=== PATIENT | female | born 1990 | race American Indian/Alaskan Native ===

== ENCOUNTER 2019-12-28 20:18 | Inpatient (IN) | payer OTHER, SELFPAY ==
[2019-12-28] MEDS ORDERED: DINOPROSTONE 10 MG VAG SUPP VG ONE (21:59)
[2019-12-28] MEDS ORDERED: BUTORPHANOL 2 MG/1 ML INJ IV PRN (21:59)
[2019-12-28] MEDS ORDERED: LIDOCAINE (2%) 20 MG/1 ML VIAL 20 ML MDV INFILTRATI ONE (21:59)
[2019-12-28] MEDS ORDERED: ePHEDrine SULFATE 50 MG/1 ML INJ IV PRN (21:59)
[2019-12-28] MEDS ORDERED: TERBUTALINE 1 MG/1 ML INJ SUB-Q PRN (21:59)
[2019-12-28] MEDS ORDERED: TERBUTALINE 1 MG/1 ML INJ IVP PRN (21:59)
[2019-12-28] MEDS ORDERED: MINERAL OIL 30 ML ORAL LIQD PO PRN (21:59)
[2019-12-28] MEDS ORDERED: OXYTOCIN 20 UNIT/1000ML DRIP 20 UNITS/1,000 ML BAG IV SCH (22:00)
[2019-12-28 22:46] LABS: Hematocrit 36.3 % (30.3-42.9); Hemoglobin 12.9 gm/dl (10.1-14.3); Mean Corpuscular HGB Conc 36 % (30-34); Mean Corpuscular Volume 92 fl (79-97); Platelet Count 169 K/mm3 (140-440); Red Blood Count 3.93 M/mm3 (3.65-5.03); Red Cell Distribution Width 13.4 % (13.2-15.2)
[2019-12-28] MEDS: LACTATED RINGERS 1,000 ML IV SCH (23:15)
--- NOTE | 2019-12-29 04:15 | History and Physical Report ---
History of Present Illness Date of examination: 12/29/19 Date of admission: 12/28/19 20:18 Chief complaint: IOL History of present illness: 29-year-old -0-0-1 at 41+4 weeks who presents for induction of labor secondary to postterm . The patient is a transfer OB at 28 weeks estimated gestational age. Her course has been uncomplicated. She is negative for GBS. Past History Past Medical History: no pertinent history Past Surgical History: no surgical history Social history: single - Obstetrical History Expected Date of Delivery: 12/18/19 Actual Gestation: 41 Week(s) 4 Day(s) : 2 Para: 1 Hx # Term Pregnancies: 1 Number of Pregnancies: 0 Spontaneous Abortions: 0 Induced : 0 Number of Living Children: 1 Medications and Allergies Allergies Allergy/AdvReac Type Severity Reaction Status Date / Time No Known Allergies Allergy Verified 12/28/19 20:42 Home Medications Medication Instructions Recorded Confirmed Last Taken Type Daily Combo Pack 147 mg PO DAILY 12/28/19 12/28/19 12/16/19 History Active Meds: Active Medications Butorphanol Tartrate (Stadol) 2 mg IV Q2H PRN PRN Reason: Pain , Severe (7-10) Ephedrine Sulfate (Ephedrine Sulfate) 10 mg IV Q2M PRN PRN Reason: Hypotension Fentanyl (Sublimaze) 100 mcg IV Q2H PRN PRN Reason: Pain,Severe (7-10) LABOR PAIN Oxytocin/Sodium Chloride (Pitocin/Ns 20 Unit/1000ml Drip) 20 units in 1,000 mls @ 125 mls/hr IV DIRECT LENORE Lactated Ringer's (Lactated Ringers) 1,000 mls @ 125 mls/hr IV DIRECT LENORE Last Admin: 12/28/19 23:15 Dose: 125 mls/hr Documented by: Mineral Oil (Mineral Oil) 30 ml PO QHS PRN PRN Reason: Constipation Terbutaline Sulfate (Brethine) 0.25 mg SUB-Q ONCE PRN PRN Reason: Hyperstimulation/Hypertonicity Terbutaline Sulfate (Brethine) 0.25 mg IVP ONCE PRN PRN Reason: Hyperstimulation/Hypertonicity Review of Systems All systems: negative Genitourinary: no vaginal bleeding, no leakage of fluid, no pelvic pain, no contractions - Vital Signs Vital signs: Vital Signs Pulse Pulse Ox 71 99 12/28/19 20:56 12/28/19 20:56 Temp Pulse Resp BP Pulse Ox 98.9 F 106 H 16 135/85 86 12/29/19 04:00 12/29/19 04:10 12/29/19 04:00 12/29/19 04:00 12/29/19 04:10 - Physical Exam Breasts: Positive: deferred Cardiovascular: Regular rate Lungs: Positive: Clear to auscultation Abdomen: Positive: normal appearance Results Result Diagrams: 12/28/19 22:00 Abnormal lab results 12/28/19 Range/Units 22:00 MCH 33 H (28-32) pg MCHC 36 H (30-34) % All other labs normal. Assessment and Plan - Patient Problems (1) Post-term , 40-42 weeks of gestation Current Visit: Yes Status: Acute Plan to address problem: Admit for induction of labor
[2019-12-29] MEDS: LACTATED RINGERS 1,000 ML IV SCH (05:46)
[2019-12-29] MEDS: fentaNYL 100 MCG/2 ML INJ IV PRN ×2 (07:45→10:57)
[2019-12-29] MEDS ORDERED: DEXMEDETOMIDINE 200 MCG/2 ML VIAL IV ONE (12:57)
[2019-12-29] MEDS ORDERED: NalbUPHINE 10 MG/1 ML INJ IV PRN (13:00)
[2019-12-29] MEDS ORDERED: NALOXONE 2 MG/2 ML INJ IV PRN (13:00)
[2019-12-29] MEDS ORDERED: ONDANSETRON 4 MG/2 ML INJ IV PRN ×2 (13:00→14:30)
[2019-12-29] MEDS ORDERED: diphenhydrAMINE 50 MG/ML VIAL IV PRN (13:00)
[2019-12-29] MEDS ORDERED: fentaNYL-BUPIV 2 MCG/ML-0.125% 200 MCG/100 ML BAG EPIDURAL SCH (13:00)
--- NOTE | 2019-12-29 13:50 | Procedure Note ---
OB Delivery Note - Delivery Date of Delivery: 12/29/19 Surgeon: NINA BETHEA ([facility]) Estimated blood loss: 500cc - Vaginal Delivery presentation: vertex Delivery position: OA Intrapartum events: mult.variable deceleratio Delivery induction: cervidil Delivery augmentation: rupture of membranes Delivery monitor: external FHT, external uterine Route of delivery: Delivery placenta: spontaneous Delivery cord: nuchal cord (x2), 3 umbilical vessels Episiotomy: none Delivery laceration: none Anesthesia: none Delivery comments: FHT category 1 throughout second stage. Excellent maternal effort progressed to of male infant at 1329. Head delivered OA, restituted LOT, shoulders followed easily, somersaulted through nuchal cord x2. to maternal abdomen, no respiratory effort, no tone. Bulb suction and stimulation. Cord clamped and cut, to warmer, peds team to bedside. Apgars 2/8. Placenta delivered spontaneously and intact, 3VC, calcifications noted. Pitocin infusing. Clots expressed from lower uterine segment, fundus firm. EBL 500cc. - Infant A at 1 minute: 2 at 5 minutes: 8 Infant Gender: Male
[2019-12-29] MEDS ORDERED: WITCH HAZEL/ GLYCERIN PAD TP PRN (13:51)
[2019-12-29] MEDS ORDERED: PROMETHAZINE 25 MG RECT SUPP PR PRN (13:51)
[2019-12-29] MEDS ORDERED: ACETAMINOPHEN 325 MG TAB PO PRN (13:51)
[2019-12-29] MEDS ORDERED: PROMETHAZINE 25 MG TAB PO PRN (13:51)
[2019-12-29] MEDS ORDERED: diphenhydrAMINE 25 MG CAP PO PRN (13:51)
[2019-12-29] MEDS ORDERED: miSOPROStol 200 MCG TAB ONE (14:03)
[2019-12-29] MEDS ORDERED: METHYLERGONOVINE MALEATE 0.2 MG/ML VIAL IM ONE ×2 (14:04→15:00)
[2019-12-29] MEDS ORDERED: miSOPROStol 200 MCG TAB PO ONE (14:07)
[2019-12-29] MEDS ORDERED: MAGNESIUM HYDROXIDE (MOM) ORAL LIQD UDC PO PRN (14:30)
[2019-12-29] MEDS ORDERED: LANOLIN/ZINC/DIMETHICONE (LANSINOH) 7 GM TP PRN (14:30)
[2019-12-29] MEDS ORDERED: hydrALAZINE 20 MG/1 ML INJ ONE (15:41)
[2019-12-29] MEDS ORDERED: MAGNESIUM SULFATE 4 GM/100 ML BAG IV ONE ×2 (15:42→16:00)
[2019-12-29] MEDS ORDERED: hydrALAZINE 20 MG/1 ML INJ IV ONE (16:00)
[2019-12-29] MEDS ORDERED: MAGNESIUM SULFATE 40GM/1000ML 40 GM/1,000 ML BAG IV SCH (17:00)
[2019-12-29] MEDS: IBUPROFEN 600 MG TAB PO SCH (18:25)
[2019-12-29 20:17] LABS: Hematocrit 39.5 % (30.3-42.9); Hemoglobin 13.8 gm/dl (10.1-14.3); Mean Corpuscular HGB Conc 35 % (30-34); Mean Corpuscular Volume 92 fl (79-97); Platelet Count 160 K/mm3 (140-440); Red Blood Count 4.32 M/mm3 (3.65-5.03); Red Cell Distribution Width 13.2 % (13.2-15.2)
[2019-12-29] MEDS ORDERED: ACETAMINOPHEN 500 MG TAB PO ONE (20:17)
[2019-12-29] MEDS ORDERED: HYDROcodone/ACETAMINOPHEN 5-325 MG TAB PO PRN (20:18)
[2019-12-29 20:32] LABS: Uric Acid 5.3 mg/dL (3.5-7.6)
[2019-12-30 02:37] LABS: Hematocrit 36.8 % (30.3-42.9); Hemoglobin 12.7 gm/dl (10.1-14.3)
--- NOTE | 2019-12-30 08:55 | Progress Note ---
Assessment and Plan A: PPD1 s/p Preeclampsia with severe features Fever now resolved- PUI PP H&H pending Mild to severe range BP P: Continue magnesium sulfate infusion Rescue Hydralazine PRN PO Labetalol BID COVID test Subjective - Subjective Date of service: 12/30/19 Principal diagnosis: s/p , preeclampsia with severe features, fever Interval history: PPD1 s/p , preeclampsia with severe features receiving magnesium sulfate inf usion. Fever overnight now resolved, COVID test to be collected today. Patient reports: appetite normal, pain well controlled : doing well, bottle feeding Objective - Vital Signs Latest vital signs: Vital Signs Temp Pulse Resp BP Pulse Ox 12/30/19 08:49 118 H 100 12/30/19 08:47 98.6 F 12/30/19 08:44 132 H 100 12/30/19 08:39 119 H 100 12/30/19 08:35 101 H 136/86 12/30/19 08:34 96 H 100 12/30/19 08:29 100 H 100 12/30/19 08:24 88 100 12/30/19 08:19 95 H 100 12/30/19 08:14 93 H 100 12/30/19 08:09 87 100 12/30/19 08:04 90 144/96 100 12/30/19 07:59 94 H 100 12/30/19 07:54 97 H 100 12/30/19 07:51 98 H 150/100 12/30/19 07:49 94 H 100 12/30/19 07:44 86 100 12/30/19 07:39 61 97 12/30/19 07:34 84 99 12/30/19 07:29 77 100 12/30/19 07:24 80 100 12/30/19 07:19 82 100 12/30/19 07:14 88 100 12/30/19 07:09 85 100 12/30/19 07:05 109 H 164/93 12/30/19 07:04 117 H 99 12/30/19 06:59 80 100 12/30/19 06:54 76 99 12/30/19 06:49 80 100 12/30/19 06:44 87 100 12/30/19 06:39 85 100 12/30/19 06:35 89 157/79 08/05/20 06:34 89 100 08/05/20 06:29 93 H 100 08/05/20 06:20 81 98 08/05/20 06:15 80 98 08/05/20 06:10 84 99 08/05/20 06:05 88 98 08/05/20 06:04 96 H 130/86 08/05/20 06:00 79 98 08/05/20 05:55 82 97 08/05/20 05:50 81 97 08/05/20 05:45 79 97 08/05/20 05:40 81 98 08/05/20 05:35 81 14 98 08/05/20 05:34 79 126/87 08/05/20 05:30 82 98 08/05/20 05:25 81 100 08/05/20 05:20 82 100 08/05/20 05:15 82 99 08/05/20 05:10 86 100 08/05/20 05:05 89 100 08/05/20 05:04 95 H 133/96 08/05/20 05:00 88 100 08/05/20 04:55 84 100 08/05/20 04:50 84 100 08/05/20 04:45 78 100 08/05/20 04:40 79 100 08/05/20 04:35 81 132/90 100 08/05/20 04:30 76 100 08/05/20 04:25 83 100 08/05/20 04:20 79 98 08/05/20 04:15 78 99 08/05/20 04:10 78 98 08/05/20 04:05 92 H 135/84 100 08/05/20 04:00 80 99 08/05/20 03:55 81 98 08/05/20 03:50 78 99 08/05/20 03:45 77 99 08/05/20 03:40 78 100 08/05/20 03:35 84 124/92 100 08/05/20 03:30 82 100 08/05/20 03:25 80 100 08/05/20 03:20 84 100 08/05/20 03:15 97 H 99 08/05/20 03:10 79 99 08/05/20 03:05 82 98 08/05/20 03:04 87 128/84 08/05/20 03:00 80 99 08/05/20 02:55 87 99 08/05/20 02:50 82 97 08/05/20 02:45 86 98 12/30/19 02:40 83 98 12/30/19 02:35 98.9 F 86 98 12/30/19 02:34 85 130/84 12/30/19 02:30 87 99 12/30/19 02:25 87 99 12/30/19 02:20 90 100 12/30/19 02:15 92 H 100 12/30/19 02:10 95 H 100 12/30/19 01:55 109 H 97 12/30/19 01:50 88 98 12/30/19 01:45 91 H 98 12/30/19 01:40 89 99 12/30/19 01:35 94 H 14 99 12/30/19 01:34 100 H 130/77 12/30/19 01:30 99 H 99 12/30/19 01:25 93 H 100 12/30/19 01:20 94 H 99 12/30/19 01:15 116 H 98 12/30/19 01:10 90 98 12/30/19 01:05 93 H 116/64 99 12/30/19 01:00 95 H 98 12/30/19 00:55 90 98 12/30/19 00:50 94 H 98 12/30/19 00:45 94 H 98 12/30/19 00:40 93 H 98 12/30/19 00:35 94 H 14 118/58 99 12/30/19 00:30 92 H 98 12/30/19 00:25 93 H 98 12/30/19 00:20 97 H 98 12/30/19 00:15 99 H 99 12/30/19 00:10 106 H 100 12/30/19 00:05 100 H 134/69 99 05 00:00 102 H 98 12/29/19 23:55 97 H 98 12/29/19 23:50 102 H 99 12/29/19 23:45 100 H 98 12/29/19 23:40 106 H 99 12/29/19 23:35 101 H 14 98 12/29/19 23:34 101 H 124/71 12/29/19 23:30 116 H 98 12/29/19 23:25 99 H 98 12/29/19 23:20 104 H 98 12/29/19 23:15 103 H 98 12/29/19 23:10 111 H 99 12/29/19 23:05 102 H 98 12/29/19 23:04 101 H 132/72 12/29/19 23:00 113 H 98 12/29/19 22:55 102 H 98 12/29/19 22:50 106 H 98 12/29/19 22:45 108 H 98 12/29/19 22:40 116 H 98 12/29/19 22:35 109 H 99 12/29/19 22:34 107 H 124/74 12/29/19 22:30 105 H 99 12/29/19 22:25 109 H 99 12/29/19 22:20 112 H 98 12/29/19 22:15 106 H 99 12/29/19 22:10 101.3 F H 110 H 98 12/29/19 22:05 112 H 98 12/29/19 22:04 107 H 127/72 12/29/19 22:00 108 H 98 12/29/19 21:55 110 H 99 12/29/19 21:50 109 H 99 12/29/19 21:45 118 H 99 12/29/19 21:40 125 H 99 12/29/19 21:35 115 H 16 99 12/29/19 21:34 110 H 121/73 12/29/19 21:30 120 H 99 12/29/19 21:25 113 H 100 12/29/19 21:20 111 H 100 12/29/19 21:15 115 H 100 12/29/19 21:10 118 H 100 12/29/19 21:05 115 H 100 12/29/19 21:04 112 H 135/82 12/29/19 21:00 114 H 100 12/29/19 20:55 122 H 99 12/29/19 20:50 126 H 100 12/29/19 20:45 120 H 100 12/29/19 20:40 118 H 100 12/29/19 20:35 116 H 99 12/29/19 20:34 114 H 137/81 12/29/19 20:30 114 H 99 12/29/19 20:25 116 H 98 12/29/19 20:20 113 H 99 12/29/19 20:15 110 H 100 12/29/19 20:10 116 H 100 12/29/19 20:05 115 H 100 12/29/19 20:04 122 H 135/80 12/29/19 20:00 119 H 100 12/29/19 19:55 125 H 100 12/29/19 19:50 125 H 100 12/29/19 19:45 121 H 100 12/29/19 19:40 115 H 100 12/29/19 19:35 116 H 18 99 12/29/19 19:34 113 H 131/82 12/29/19 19:30 113 H 100 12/29/19 19:25 102.0 F H 113 H 99 12/29/19 19:23 112 H 129/84 12/29/19 19:20 109 H 99 12/29/19 19:15 111 H 100 12/29/19 19:10 113 H 99 12/29/19 19:05 121 H 122/82 100 12/29/19 19:00 109 H 99 12/29/19 18:55 109 H 100 12/29/19 18:50 120 H 100 12/29/19 18:45 112 H 99 12/29/19 18:40 111 H 99 12/29/19 18:35 110 H 100 12/29/19 18:34 108 H 136/84 12/29/19 18:30 108 H 100 12/29/19 18:25 113 H 99 12/29/19 18:18 118 H 100 12/29/19 18:13 109 H 100 12/29/19 18:08 108 H 100 12/29/19 18:04 105 H 143/81 12/29/19 18:03 106 H 99 12/29/19 18:00 18 99 12/29/19 17:58 109 H 99 12/29/19 17:53 105 H 100 12/29/19 17:48 108 H 100 12/29/19 17:43 112 H 100 12/29/19 17:38 108 H 100 12/29/19 17:34 107 H 140/87 12/29/19 17:33 109 H 100 12/29/19 17:28 109 H 100 12/29/19 17:23 105 H 100 12/29/19 17:18 104 H 99 12/29/19 17:13 104 H 99 12/29/19 17:08 110 H 99 12/29/19 17:04 105 H 138/82 12/29/19 17:03 107 H 99 12/29/19 16:58 106 H 100 12/29/19 16:53 105 H 99 12/29/19 16:48 113 H 99 12/29/19 16:43 108 H 100 12/29/19 16:38 108 H 100 12/29/19 16:34 113 H 136/76 12/29/19 16:33 115 H 98 12/29/19 16:28 111 H 100 12/29/19 16:23 107 H 100 12/29/19 16:18 107 H 98 12/29/19 16:13 109 H 99 12/29/19 16:08 104 H 99 12/29/19 16:04 102 H 146/89 12/29/19 16:03 101 H 100 12/29/19 16:00 98.8 F 18 100 12/29/19 15:58 98 H 100 12/29/19 15:53 106 H 100 12/29/19 15:48 99 H 99 12/29/19 15:43 92 H 100 12/29/19 15:38 94 H 100 12/29/19 15:35 93 H 162/108 12/29/19 15:33 96 H 99 12/29/19 15:28 99 H 99 12/29/19 15:23 102 H 99 12/29/19 15:18 119 H 99 12/29/19 15:16 168/85 12/29/19 15:13 102 H 99 12/29/19 15:08 91 H 100 12/29/19 15:05 85 166/89 12/29/19 15:03 81 99 12/29/19 14:58 97 H 100 12/29/19 14:53 86 99 12/29/19 14:48 86 99 12/29/19 14:43 95 H 100 12/29/19 14:38 92 H 98 12/29/19 14:35 88 187/85 12/29/19 14:33 95 H 99 12/29/19 14:28 100 H 99 12/29/19 14:23 93 H 99 12/29/19 14:18 103 H 99 12/29/19 14:13 106 H 100 12/29/19 14:08 105 H 100 12/29/19 14:06 109 H 161/80 12/29/19 14:03 112 H 100 12/29/19 14:00 133/98 12/29/19 13:58 111 H 100 12/29/19 13:53 113 H 100 12/29/19 13:48 119 H 100 12/29/19 13:43 106 H 100 12/29/19 13:38 113 H 100 12/29/19 13:34 116 H 135/82 12/29/19 13:33 111 H 100 12/29/19 13:28 121 H 100 12/29/19 13:23 139 H 99 12/29/19 13:18 137 H 100 12/29/19 13:13 115 H 100 12/29/19 13:08 128 H 100 12/29/19 13:03 123 H 99 12/29/19 12:58 122 H 100 12/29/19 12:53 121 H 100 12/29/19 12:48 113 H 99 12/29/19 12:43 96 H 100 12/29/19 12:38 118 H 100 12/29/19 12:34 111 H 141/89 12/29/19 12:33 125 H 100 12/29/19 12:28 118 H 100 12/29/19 12:23 118 H 100 12/29/19 12:21 103 H 136/86 12/29/19 12:18 105 H 99 12/29/19 12:09 109 H 98 12/29/19 12:04 95 H 99 12/29/19 11:59 99 H 99 12/29/19 11:47 130 H 0 L 12/29/19 11:42 99 H 98 12/29/19 11:37 102 H 98 12/29/19 11:36 102 H 118/74 12/29/19 11:32 88 99 12/29/19 11:27 109 H 96 12/29/19 11:22 82 96 12/29/19 11:17 83 96 12/29/19 11:12 86 97 12/29/19 11:07 89 97 12/29/19 11:05 87 135/83 12/29/19 11:02 90 96 12/29/19 10:57 114 H 139/87 96 12/29/19 10:52 122 H 99 12/29/19 10:47 134 H 99 12/29/19 10:29 111 H 98 12/29/19 10:24 103 H 98 12/29/19 10:19 114 H 98 12/29/19 10:14 111 H 98 12/29/19 10:09 112 H 99 12/29/19 10:06 111 H 132/93 12/29/19 10:04 113 H 98 12/29/19 09:59 96 H 97 12/29/19 09:54 104 H 98 12/29/19 09:49 116 H 99 12/29/19 09:44 97 H 97 12/29/19 09:39 83 98 12/29/19 09:35 88 135/74 12/29/19 09:34 86 98 12/29/19 09:29 105 H 98 12/29/19 09:24 125 H 99 12/29/19 09:13 95 H 100 12/29/19 09:08 107 H 99 12/29/19 09:04 100 H 138/76 12/29/19 09:03 99 H 100 12/29/19 08:58 101 H 98 Intake and Output 12/29/19 12/30/19 12/30/19 23:59 07:59 15:59 Output Total 1225 750 800 Balance -1225 -750 -800 Output: Urine 1225 750 800 Indwelling Catheter 1225 750 800 Other: Total, Output Amount 150 150 800 - Exam Breasts: Present: normal Lungs: Present: Normal air movement Abdomen: Present: soft. Absent: distention Uterus: Present: firm, fundal height below umbilicus. Absent: bogginess Extremities: Present: normal - Labs Labs: Abnormal lab results 12/29/19 12/29/19 12/30/19 Range/Units 20:02 20:13 01:56 WBC 19.3 H (4.5-11.0) K/mm3 MCHC 35 H (30-34) % Magnesium 3.50 H 5.00 H (1.7-2.3) mg/dL Lactate Dehydrogenase 347 H (91-180) units/L 12/30/19 Range/Units 06:28 WBC (4.5-11.0) K/mm3 MCHC (30-34) % Magnesium 5.60 H (1.7-2.3) mg/dL Lactate Dehydrogenase (91-180) units/L
[2019-12-30 09:36] LABS: C-Reactive Protein 8.2 mg/dL (0.00-1.30)
[2019-12-30] MEDS: IBUPROFEN 600 MG TAB PO SCH (23:24)
[2019-12-31] MEDS: IBUPROFEN 600 MG TAB PO SCH ×2 (05:40→12:45)
--- NOTE | 2019-12-31 08:41 | Progress Note ---
Assessment and Plan A: PPD2 s/p Preeclampsia with severe features s/p mag sulfate Afebrile Normal to mild range BP P: Discharge to home today with close clinical follow up Subjective - Subjective Date of service: 12/31/19 Principal diagnosis: s/p , preeclampsia with severe features, fever Interval history: PPD2 s/p , preeclampsia with severe features s/p mag sulfate infusion. Patient reports: appetite normal, voiding normally, pain well controlled, ambulating normally : doing well, nursing well, bottle feeding (both) Objective - Vital Signs Latest vital signs: Vital Signs Temp Pulse Resp BP BP Pulse Ox 12/31/19 04:53 98.5 F 92 H 18 133/85 99 12/31/19 00:30 98.3 F 106 H 18 125/83 98 12/30/19 23:26 98.4 F 89 142/92 12/30/19 17:10 98.4 F 104 H 20 142/91 100 12/30/19 16:15 102 H 99 12/30/19 16:10 104 H 99 12/30/19 16:05 101 H 99 12/30/19 16:04 106 H 138/94 12/30/19 16:00 103 H 99 12/30/19 15:55 101 H 99 12/30/19 15:50 102 H 99 12/30/19 15:45 103 H 99 12/30/19 15:40 107 H 99 12/30/19 15:35 113 H 138/95 100 12/30/19 15:30 103 H 99 12/30/19 15:25 100 H 98 12/30/19 15:20 99 H 98 12/30/19 15:15 110 H 98 12/30/19 15:10 98.7 F 99 H 99 12/30/19 15:05 95 H 141/86 98 12/30/19 15:00 107 H 99 12/30/19 14:55 97 H 99 12/30/19 14:50 99 H 99 12/30/19 14:45 92 H 156/95 99 12/30/19 14:40 106 H 100 12/30/19 14:35 88 100 12/30/19 14:30 81 100 12/30/19 14:25 88 100 12/30/19 14:20 86 100 08/05/20 14:15 89 100 080520 14:10 82 100 08/0520 14:05 92 H 100 0520 14:00 88 100 08/0520 13:55 86 100 080520 13:50 86 100 080520 13:45 81 100 080520 13:40 86 100 080520 13:35 94 H 100 080520 13:30 85 100 080520 13:25 99 H 100 080520 13:20 77 100 08/0520 13:15 82 100 080520 13:10 85 100 0805 13:05 85 100 05 13:00 84 100 08/0520 12:55 82 100 05 12:50 83 100 0520 12:45 81 100 0520 12:40 91 H 100 0520 12:35 87 100 0520 12:30 79 100 05 12:25 76 100 05 12:20 83 99 08/0520 12:15 83 100 05 12:10 84 100 05 12:05 93 H 100 05 12:00 81 100 0520 11:55 83 100 05 11:50 86 100 080520 11:45 83 100 0520 11:40 84 100 /0520 11:35 89 100 0520 11:30 93 H 100 05 11:25 91 H 100 0520 11:20 88 100 080520 11:15 82 100 080520 11:10 80 100 080520 11:05 84 100 0520 11:00 80 98 08/0520 10:55 90 99 08/05/20 10:50 83 100 0520 10:45 82 99 08/05/20 10:40 82 99 08/05/20 10:35 82 100 08/0520 10:30 90 99 08/05/20 10:25 80 99 08/05/20 10:20 100 H 99 08/05/20 10:15 86 98 08/0520 10:10 92 H 98 08/05/20 10:05 95 H 98 12/30/19 10:00 92 H 98 12/30/19 09:55 100 H 99 12/30/19 09:50 100 H 99 12/30/19 09:45 98 H 99 12/30/19 09:40 97 H 99 12/30/19 09:35 95 H 99 12/30/19 09:30 96 H 99 12/30/19 09:25 108 H 100 12/30/19 09:20 105 H 99 12/30/19 09:15 109 H 99 12/30/19 09:10 109 H 99 12/30/19 09:05 109 H 99 12/30/19 09:00 90 12/30/19 08:54 109 H 99 12/30/19 08:49 118 H 100 12/30/19 08:47 98.6 F 12/30/19 08:44 132 H 100 Intake and Output 12/30/19 12/31/19 12/31/19 23:59 07:59 15:59 Intake Total 480 600 Balance 480 600 Intake: Oral 240 Intake, Free Water 240 600 Other: Total, Intake Amount 240 # Voids Void 1 - Exam Lungs: Present: Normal air movement Abdomen: Present: soft. Absent: distention Uterus: Present: firm, fundal height below umbilicus. Absent: bogginess Extremities: Present: normal - Labs Labs: Abnormal lab results 12/30/19 12/30/19 12/30/19 Range/Units 08:26 08:26 17:46 D-Dimer 3726.78 H (0-234) ng/mlDDU Glucose 124 H (65-100) mg/dL Magnesium 3.10 H (1.7-2.3) mg/dL Lactate Dehydrogenase 453 H (91-180) units/L C-Reactive Protein 8.20 H (0.00-1.30) mg/dL
--- NOTE | 2019-12-31 08:43 | Discharge Summary ---
Providers - Providers Date of Admission: 12/28/19 20:18 Date of discharge: 12/31/19 Attending physician: VINCE WRIGHT Primary care physician: VINCE WRIGHT Hospitalization Reason for admission: induction of labor (post-dates ), IUP at term Delivery: Episiotomy: none Laceration: none Other procedures: none complications: uterine atony Discharge diagnosis: IUP at term delivered baby: female Hospital course: Pt was induced was post-dates gestational and had a . She was found to have preeclampsia with severe features and received magnesium sulfate infusion x24 hours . She met discharge criteria on PPD2. Condition at discharge: Good Disposition: DC-01 TO HOME OR SELFCARE Plan - Discharge Medications Prescriptions: labetaloL [Labetalol 200mg TAB] 200 mg PO BID #60 tablet Ibuprofen [Motrin] 600 mg PO Q6H PRN #60 tablet PRN Reason: Pain - Provider Discharge Summary Activity: routine, no sex for 6 weeks, no heavy lifting 4 weeks, no strenuous exercise Diet: routine Instructions: routine Additional instructions: [] Smoking cessation referral if applicable(refer to patient education folder f or contact #) [] Refer to [facility]'s [facility] Booklet Call your doctor immediately for: * Fever > 100.5 * Heavy vaginal bleeding ( >1 pad per hour) * Severe persistent headache * Shortness of breath * Reddened, hot, painful area to leg or breast * Drainage or odor from incision. * Keep incision clean and dry at all times and follow doctor's instructions regarding bathing/showering - Follow up plan Follow up: NINA BETHEA CNM [Advanced Practice Nurse] - 7 Days
[2019-12-31 14:38] VITALS: BP 135/90
== END 2019-12-31 16:15 | disposition home or self-care (01) | DRG 806 ==
LOC: LD 20:18 → OB 12-30 17:15
PROVIDERS: ADMIT Obstetrics & Gynecology; ATTEND Obstetrics & Gynecology
PROC: 3E0P7VZ Introduction of Hormone into Female Reproductive, Via Natural or Artificial Opening (ICD-10-PCS; 2019-12-28)
PROC: 10E0XZZ Delivery of Products of Conception, External Approach (ICD-10-PCS; principal; 2019-12-29)
DX: O48.0 Post-term pregnancy (principal); O72.1 Other immediate postpartum hemorrhage; Z37.0 Single live birth; O76 Abnormality in fetal heart rate and rhythm complicating labor and delivery; O69.81X0 Labor and delivery complicated by cord around neck, without compression, not applicable or unspecified; Z3A.41 41 weeks gestation of pregnancy; O14.14 Severe pre-eclampsia complicating childbirth
CPT/HCPCS: 36415; 82565; 82728; 82947; 83615; 83735; 84145; 84550; 85014; 85018; 85027; 85379; 86140; 86850; 86900; 86901; G0378; J0360; J2210; J2590; J3010; J3475; J3490; J7120; U0003-CS

== ENCOUNTER 2021-10-07 14:33 | Emergency (ER) | payer SELFPAY ==
[2021-10-07] MEDS ORDERED: METOCLOPRAMIDE 10 MG/2 ML INJ IV ONE (21:32)
[2021-10-07] MEDS ORDERED: SUMAtriptan SUCCINATE 6 MG/0.5 ML INJ SUB-Q ONE (21:32)
--- NOTE | 2021-10-07 21:37 | Emergency Department Report ---
ED General Adult HPI - General Chief complaint: Headache Stated complaint: HEADACHE/DIZZY Time Seen by Provider: 10/07/21 21:18 Source: patient Mode of arrival: Ambulatory Limitations: No Limitations - History of Present Illness Initial comments: Patient presents with complaints of headache x 2 days, R retrobulbar/temporal, throbbing, non-radiating, 7/10, worsened by light and noise, not relieved by anything. Denies numbness, weakness, neck stiffness, rhinorrhea, nasal congestion. Has a hx of recurrent HAs but has not been formally diagnosed with migraines. Severity scale (0 -10): 5 - Related Data Home Medications Medication Instructions Recorded Confirmed Last Taken Daily Combo Pack 147 mg PO DAILY 12/28/19 12/28/19 12/16/19 Previous Rx's Medication Instructions Recorded Last Taken Type Ibuprofen [Motrin] 600 mg PO Q6H PRN #60 tablet 12/31/19 Unknown Rx labetaloL [Labetalol 200mg TAB] 200 mg PO BID #60 tablet 12/31/19 Unknown Rx Metoclopramide [Reglan TAB] 1 tab PO Q6H PRN #30 tab 10/08/21 Unknown Rx SUMAtriptan SUCCINATE [Imitrex] 1 tab PO Q6H PRN #30 tab 10/08/21 Unknown Rx Allergies Allergy/AdvReac Type Severity Reaction Status Date / Time No Known Allergies Allergy Verified 12/28/19 20:42 ED Review of Systems ROS: Stated complaint: HEADACHE/DIZZY Other details as noted in HPI Comment: All other systems reviewed and negative Constitutional: denies: chills, fever ED Past Medical Hx - Past Medical History Hx Hypertension: No Hx Congestive Heart Failure: No Hx Diabetes: No Hx Deep Vein Thrombosis: No Hx Renal Disease: No Hx Sickle Cell Disease: No Hx Seizures: No Hx Asthma: No Hx COPD: No Hx HIV: No - Social History Smoking Status: Never Smoker - Medications Home Medications: Home Medications Medication Instructions Recorded Confirmed Last Taken Type Daily Combo Pack 147 mg PO DAILY 12/28/19 12/28/19 12/16/19 History Ibuprofen [Motrin] 600 mg PO Q6H PRN #60 tablet 12/31/19 Unknown Rx labetaloL [Labetalol 200mg TAB] 200 mg PO BID #60 tablet 12/31/19 Unknown Rx Metoclopramide [Reglan TAB] 1 tab PO Q6H PRN #30 tab 10/08/21 Unknown Rx SUMAtriptan SUCCINATE [Imitrex] 1 tab PO Q6H PRN #30 tab 10/08/21 Unknown Rx ED Physical Exam - General Limitations: No Limitations General appearance: alert, in no apparent distress - Head Head exam: Present: atraumatic, normocephalic - Eye Eye exam: Present: PERRL, EOMI - ENT ENT exam: Present: mucous membranes moist, other (airway patent) - Neck Neck exam: Present: other (supple; no JVD) - Respiratory Respiratory exam: Present: other (good air entry, nml I:E, CTAB, no use of MILTON) - Cardiovascular Cardiovascular Exam: Present: regular rate. Absent: rubs, gallop - GI/Abdominal GI/Abdominal exam: Present: soft, normal bowel sounds. Absent: distended, tenderness - Extremities Exam Extremities exam: Present: full ROM. Absent: tenderness - Back Exam Back exam: Present: full ROM. Absent: tenderness - Neurological Exam Neurological exam: Present: alert, oriented X3, CN II-XII intact, other (neg Kernig's and Brudzinski's signs). Absent: motor sensory deficit - Skin Skin exam: Present: warm, normal color ED Course Vital Signs 10/07/21 10/07/21 15:07 21:07 Temperature 97.8 F 98 F Pulse Rate 90 82 Respiratory 18 18 Rate Blood Pressure 122/76 Blood Pressure 135/88 [Right] O2 Sat by Pulse 97 100 Oximetry ED Medical Decision Making - Lab Data Result diagrams: 10/07/21 22:39 10/07/21 22:39 Laboratory Tests 10/07/21 10/07/21 10/07/21 22:39 22:39 22:39 WBC 7.6 RBC 4.99 Hgb 14.5 H Hct 45.6 H MCV 91 MCH 29 MCHC 32 RDW 13.6 Plt Count 300 Lymph % (Auto) 47.6 H Barren % (Auto) 8.7 H Eos % (Auto) 2.0 Baso % (Auto) 0.7 Lymph # (Auto) 3.6 Barren # (Auto) 0.7 Eos # (Auto) 0.1 Baso # (Auto) 0.1 Seg Neutrophils % 41.0 Seg Neutrophils # 3.1 Sodium 135 L Potassium 4.4 Chloride 96.6 L Carbon Dioxide 23 Anion Gap 20 BUN 10 Creatinine 0.7 Estimated GFR > 60 BUN/Creatinine Ratio 14 Glucose 91 Calcium 9.7 Total Bilirubin 0.30 AST 18 ALT 11 Alkaline Phosphatase 155 H C-Reactive Protein 0.60 Total Protein 8.6 H Albumin 4.5 Albumin/Globulin Ratio 1.1 HCG, Qual Negative CT head: no acute intracranial process - Medical Decision Making Diff dz: - Headache: likely 2/2 migraine. No signs of meningitis, SAH, CVA, cerebral edema, intracranial space occupying lesions. Received imitrex 6 mg SC x 1, metoclopramide 10 mg IM x 1. MILLER resolved. Critical care attestation.: If time is entered above; I have spent that time in minutes in the direct care of this critically ill patient, excluding procedure time. ED Disposition Clinical Impression: Headache Disposition: 01 HOME / SELF CARE / HOMELESS Is pt being admited?: No Does the pt Need Aspirin: No Condition: Stable Instructions: General Headache Without Cause Additional Instructions: Follow up with your regular doctor within 2 - 4 days. Return to the ER if your symptoms worsen or do not improve. Prescriptions: SUMAtriptan SUCCINATE [Imitrex] 1 tab PO Q6H PRN #30 tab PRN Reason: Headache Metoclopramide [Reglan TAB] 1 tab PO Q6H PRN #30 tab PRN Reason: Nausea And Vomiting Referrals: CARMELITA RAMESH MD [Primary Care Provider] - 3-5 Days Time of Disposition: 00:18
[2021-10-07 22:10] VITALS: BP 122/76
--- NOTE | 2021-10-07 22:57 | Cat Scan Report ---
CT HEAD WITHOUT CONTRAST INDICATION / CLINICAL INFORMATION: Headache. TECHNIQUE: All CT scans at this location are performed using CT dose reduction for ALARA by means of automated exposure control. COMPARISON: None available. FINDINGS: BRAIN PARENCHYMA: No acute intracranial hemorrhage. No evidence of recent infarct. No mass effect or midline shift. VENTRICULAR SYSTEM/EXTRA-AXIAL SPACES: Ventricles are normal for age. No extra-axial fluid collection . ORBITS: Normal as visualized. SKELETAL SYSTEM/SOFT TISSUES: Normal bones and soft tissues. PARANASAL SINUSES/MASTOID AIR CELLS: No significant abnormality. ADDITIONAL FINDINGS: None. IMPRESSION: 1. No acute intracranial abnormality. Signer Name: Kirby Cao MD Signed: 10/07/2021 10:52 PM Workstation Name: [id number]
[2021-10-07 23:00] LABS: Basophils # (Auto) 0.1 K/mm3 (0.0-0.1); Basophils % (Auto) 0.7 % (0.0-1.8); Eosinophils # (Auto) 0.1 K/mm3 (0.0-0.4); Hematocrit 45.6 % (30.3-42.9); Hemoglobin 14.5 gm/dl (10.1-14.3); Lymphocytes # (Auto) 3.6 K/mm3 (1.2-5.4); Lymphocytes % (Auto) 47.6 % (13.4-35.0); Mean Corpuscular HGB Conc 32 % (30-34); Mean Corpuscular Volume 91 fl (79-97); Monocytes # (Auto) 0.7 K/mm3 (0.0-0.8); Monocytes % (Auto) 8.7 % (0.0-7.3); Platelet Count 300 K/mm3 (140-440); Red Blood Count 4.99 M/mm3 (3.65-5.03); Red Cell Distribution Width 13.6 % (13.2-15.2)
[2021-10-07 23:25] LABS: Alanine Aminotransferase 11 units/L (7-56); Albumin 4.5 g/dL (3.9-5); Blood Urea Nitrogen 10 mg/dL (7-17); Calcium 9.7 mg/dL (8.4-10.2); Hemolysis Index 15
[2021-10-07 23:45] LABS: BUN/Creatinine Ratio 14
== END 2021-10-08 00:55 | disposition home or self-care (01) ==
LOC: ED 14:33
DX: R51.9 Headache, unspecified (principal)
CPT/HCPCS: 36415; 70450; 80053; 84703; 85025; 86140; 96372; 96374; 99284; J2765; J3490; J3030